=== PATIENT | male | born 1995 ===

== ENCOUNTER → 2025-01-12 08:00 | Outpatient (REF) | payer OTHER, SELFPAY ==
--- NOTE | 2025-01-12 | HM_ITS ---
Conclusion: 1. Patient was monitored for total period of 15 days 2. Baseline was normal sinus rhythm with average heart of 86 beats per minute 3. No significant pauses or arrhythmias noted 4. Patient marked the counter 10 times with symptoms of slight pain reported correlating with sinus rhythm MTDD
== END ==
LOC: HO.CARD 08:00
PROVIDERS: Visit Provider Nurse Practitioner
DX: R07.9 Chest pain, unspecified (principal)
CPT/HCPCS: 93246

== ENCOUNTER → 2025-01-12 09:00 | Outpatient (BNV) | payer OTHER, SELFPAY | PROVIDERS: Visit Provider Internal Medicine Cardiovascular Disease | DX: R00.0 Tachycardia, unspecified (principal) | CPT/HCPCS: 93248 ==